=== PATIENT | female | born 1940 | race Caucasian/White ===

== ENCOUNTER → 2019-08-18 09:08 | Outpatient (CLI) | payer MEDICARE, MEDICAID | END | disposition home or self-care (01) | LOC: D.CT 08-11 08:00 | PROVIDERS: ATTEND Family Medicine | DX: N20.9 Urinary calculus, unspecified (principal) ==

== ENCOUNTER 2019-11-28 06:13 | Inpatient (IN) | payer MEDICARE, MEDICAID ==
[~2019-11-28] VITALS: Ht 167.6 cm; Wt 87.7 kg
--- NOTE | ~2019-11-28 | HEMODYNAMI ---
PATIENT:PALLAVI WALSH MEDICAL RECORD: [id number] : 44 LOCATION:D.FORMERLY [facility] ADMISSION DATE: 11/28/19 Generatedon:11/28/20199:27 Patient name: PALLAVI WALSH Patient #: [id number] SSN: : 1940 Date of study: 11/28/2019 Page: Of Hemodynamic Procedure Report Patient Data Patient Demographics Procedure consent was obtained First Name: PALLAVI Gender: Female Last Name: NICO : 1940 Middle Initial: D Age: 79 year(s) Patient #: [id number] Race: Unknown Additional ID: [id number] Contact details Address: [address] [place] [address] [facility] State: [place] City: [place] Zip code: [address] Past Medical History Allergies Allergen Reaction Date Comments Reported Codeine 11/28/2019 Admission Admission Data Admission Date: 11/28/2019 Admission Time: 6:13 Procedure Procedure Types Cath Procedure Peripheral Cath Diagnostic Procedure Nephro Perc Neph Uret Cath Procedure Description Procedure Date Procedure Date: 11/28/2019 Procedure Start Time: 8:46 Procedure End Time: 9:26 Procedure Staff Name Function Vandana Ball MD Ordering physician Ming Casas MD Performing Physician ALEKSANDRA TENORIO RT Monitor Daniel Mccarthy RT Scrub Cydney Garcia RN Nurse Procedure Data Cath Procedure Fluoroscopy Diagnostic fluoroscopy Total fluoroscopy Time: time: 12.4 min 12.4 min Contrast Material Contrast Material Type Amount (ml) Isovue 300 25 Diagnostic catheters Device Type Used For End Catheter Placement Merit Impress KA2 5Fr 65CM catheter ([id number]) Procedure Medications Medication Administration Route Dosage Heparin Flush Bag added to field 2 bags (1000units/500ml NS) Lidocaine 1% added to field 20 Versed I.V. 0.5 mg Fentanyl I.V. 25 mcg Hemodynamics Rest Heart Rate: 72 (bpm) Snapshots Pre Cath Intra NCS Post Cath Vital Signs Time Heart Resp SPO2 etCO2 NIBP (mmHg) Rhythm Pain Sedation Rate (ipm) (%) (mmHg) Status Level (bpm) 8:30:15 72 19 94 31.4 127/70(108) NSR 0 (11) 10(A) , No pain 8:34:29 69 25 97 28.4 126/66(106) NSR 0 (11) 10(A) , No pain 8:38:45 70 16 98 27.7 108/61(92) NSR 0 (11) 10(A) , No pain 8:42:55 71 21 95 26.2 124/59(96) NSR 0 (11) 10(A) , No pain 8:47:07 68 20 96 29.2 116/64(107) NSR 0 (11) 10(A) , No pain 8:51:19 67 17 98 29.2 107/60(87) NSR 0 (11) 8(A) , No pain 8:55:27 65 21 96 30.7 107/61(95) NSR 0 (11) 8(A) , No pain 9:00:25 67 18 97 30 Measuring NSR 0 (11) 8(A) , No pain 9:01:02 68 16 96 32.2 100/56(87) NSR 0 (11) 8(A) , No pain 9:06:01 66 21 95 26.2 113/61(84) NSR 0 (11) 8(A) , No pain 9:10:13 67 19 96 27 120/55(107) NSR 0 (11) 8(A) , No pain 9:14:27 69 20 96 23.2 116/60(84) NSR 0 (11) 8(A) , No pain 9:18:35 68 18 97 30 127/70(115) NSR 0 (11) 8(A) , No pain 9:22:51 75 16 97 27 127/61(109) NSR 0 (11) 8(A) , No pain 9:27:05 66 16 97 28.5 138/67(98) NSR 0 (11) 8(A) , No pain Medications Time Medication Route Dose Verified Delivered Reason Notes Effec tiveness by by 8:40:21 Heparin Flush added 2 Ming Lai used for Bag to bags Casas Casas procedure (1000units/500ml field MD MATA NS) 8:40:33 Lidocaine 1% added 20ml Ming Lai for local to vial Yessenia Casas anesthetic field MD MATA 8:46:58 Versed I.V. 0.5 Ming Lamas for mg Yessenia Garcia RN sedation 8:47:09 Fentanyl I.V. 25 Ming Lamas for mcg Yessenia Garcia RN sedation Procedure Log Time Note 7:58:21 Use device set IR Diagnostic 7:58:22 Bag Decanter (2002S) opened to sterile field. 7:58:22 Sterile Angiographic Pack opened to sterile field. 7:58:23 Tegaderm 4 x 4 (1626W) opened to sterile field. 8:17:28 [facility] sent for patient. Start room use. 8:17:30 Time tracking: Regular hours (M-F 7:00 - 5:00) 8:17:41 Plan of Care:Hemodynamics will remain stable., Cardiac rhythm will remain stable., Comfort level will be maintained., Respiratory function will remain adequate., Patient/ family verbilizes understanding of procedure., Procedure tolerated without complication., Recovers from procedure without complications.. 8:17:48 Patient received from Outpatients to IR Alert and oriented. Tansferred to table in Prone position. 8:17:51 Signed procedure consent form obtained from patient. 8:17:52 Warm blankets applied, and abdoulaye hugger turned on for patient comfort. 8:17:53 Correct patient and procedure confirmed by team. 8:17:54 ECG and BP/O2 sat monitors applied to patient. 8:17:55 8:18:12 H&P Date Dictated: 11/28/2019 H&P Addendum completed by physician on day of procedure. (MUST COMPLETE FOR ALL OUTPATIENTS). 8:18:16 Patient NPO since Midnight. 8:18:22 Patient allergic to Codeine 8:18:27 Is the patient allergic to Iodine/contrast media? No. 8:18:29 Is patient on blood thinner?No 8:18:31 Patient diabetic? No. 8:18:33 8:18:35 ----Pre-sedation anethsthesia assessment.---- 8:18:47 Previous problem with sedation/anesthesia? No ? 8:18:48 Snore? No 8:18:50 Sleep apnea? No 8:18:51 Deviated septum? No 8:18:52 Opens mouth fully? Yes 8:18:53 Sticks out tongue? Yes 8:18:57 Airway obstruction? No ? 8:19:00 Dentures? Yes out. 8:19:02 8:19:42 IV patent on arrival in left wrist with Lactated Ringers at O. 8:19:53 Left Renal was prepped with chlora-prep and draped in sterile fashion. 8:19:54 Alarms reviewed by Ramirez Edmonds 8:19:55 Sharps counted by scrub and verified by RMartha 8:19:56 8:29:00 KIT, INTRODUCER ACCUSTICK II W/C ([id number]) opened to sterile field. 8:29:06 Vital chart was started 8:29:07 Baseline sample Acquired. 8:29:09 Full Disclosure recording started 8:29:11 8:40:21 Heparin Flush Bag (1000units/500ml NS) 2 bags added to field was administered by Ming Casas MD; used for procedure; Verbal order read back and verified. 8:40:33 Lidocaine 1% 20ml vial added to field was administered by Ming Casas MD; for local anesthetic; Verbal order read back and verified. 8:41:34 Physician arrived 8:41:41 --------ALL STOP TIME OUT------ 8:41:42 Final Timeout: patient, procedure, and site verified with staff and physician. All members of the team are in agreement. 8:41:50 Left Renal site verified by team. 8:42:04 Fire Safety Assessment: A--An alcohol-based skin anteseptic being used preoperatively., C--Open oxygen or nitrous oxide is being used. 8:42:14 3a) 45-59 Moderately reduced kidney function. 8:44:22 Maximum allowable contrast dose (3.7 X eGFR X 0.75)?158 ml. 8:45:22 Procedure started. 8:46:07 Local anesthetic to Left Renal area with Lidocaine 1% by Ming Casas MD.INITIAL ACCESS ONLY 8:46:58 Versed 0.5 mg I.V. was administered by Cydney Garcia RN; for sedation; Verbal order read back and verified. 8:47:09 Fentanyl 25 mcg I.V. was administered by Cydney Garcia RN; for sedation; Verbal order read back and verified. 9:06:52 NITINOL .018 80cm wire ([id number]) opened to sterile field. 9:10:34 A Yorxs KA2 5Fr 65CM catheter ([id number]) was advanced over the wire and used for renal access . 9:10:36 ROADRUNNER .035 145 glide wire ([id number]) opened to sterile field. 9:18:53 GLIDE WIRE .035 180CM STRAIGHT (GU7063) opened to sterile field. 9:20:36 Procedure ended.(Physican Out) 9:22:15 Fluoroscopy time 12.40 minutes. 9:22:19 Dose Area Product 452 mGy/cm. 9:22:23 Contrast amount:Isovue 300 25ml. 9:22:25 Maximum allowable dose exceeded? No. 9:22:28 Sharps counted by scrub and verified by R.N. 9:22:30 Insertion/operative site no bleeding no hematoma. 9:22:41 Post-op/insertion site Left Renal dressed using a 4 x 4 and Tegaderm. 9:23:16 Catheter was left in place and a sterile dressing applied 9:23:38 Post procedure instruction explained to patient.Patient verbalizes understanding. 9:23:39 Procedure and supply charges have been captured, reviewed, submitted and are correct. 9:26:27 Vital chart was stopped 9:26:33 See physician's report for complete and final results. 9:26:42 Procedure ended. 9:26:42 Full Disclosure recording stopped Device Usage Item Name Manufacture Quantity Catalog Hospital Part Current Minimal Lot# / Number Charge Number Stock Stock Serial# Code Bag Decanter Microtek 1 [id number] [id number] 5 () Medical Inc. Sterile Cardinal 1 [id number] 030156 656343 5 Angiographic Health Pack Tegaderm 4 x 3M 1 1626W 701428 499902 625009 5 4 (1626W) KIT, [place] 1 [id number] 437161 756009 275195 5 INTRODUCER Scientific ACCUSTICK II W/C ([id number]) NITINOL .018 Medtronic 1 [id number] 231477 644453 5 [id number] 80cm wire ([id number]) Merit Merit 1 [id number] 994752 591831 5 [place] [address] Medical 5Fr 65CM catheter ([id number]) [facility] 1 [id number] 335376 588234 963790 5 .035 145 glide wire (H07338) GLIDE WIRE Terumo 1 EQ8610 108918 850384 5 .038 180cm ANGLED (QN3227) GLIDE WIRE Terumo 1 [id number] 736120 957763 5 .035 180CM STRAIGHT (HL6332) Signature Audit Merrill Stage Time Signature Unsigned Intra-Procedure 11/28/2019 ALEKSANDRA TENORIO RT 9:27:43 AM (R) [facility] [address] [place] [address]
[~2019-11-28 06:13] MED LIST: ACIDOPHILUS-PE1 EACH PO; AMOXICILLIN500 M1 PO; ARICEPT23 MG PO; BAYER CHEWABLE81 MG PO; FAMOTIDINE10 MG PO; FLUTICASONE PRO16 GM NASAL; LISINOPRIL10 MG PO; MELATONIN10 M1 PO; ULTRAM50 MG PO
[2019-11-28 06:51] LABS: ANION GAP 10.2 mmol/L (8-16); CARBON DIOXIDE 25.6 mmol/L (21.0-32.0); POTASSIUM - SERUM 3.8 mmol/L (3.5-5.1)
[2019-11-28 07:34] LABS: INR 0.97 (0.85-1.17); PROTIME 12.8 SECONDS (11.6-15.0)
[2019-11-28 07:56] VITALS: BP 144/89; BMI 31.2
[2019-11-28 08:13] LABS: BASOPHILS 0.3 % (0-2); HEMOGLOBIN 14.9 g/dL (12-16); MCH 31.1 pg (26.0-34.0); MCHC 31.7 g/dL (31.0-37.0); MCV 98.1 fL (80.0-100.0); MEAN PLATELET VOLUME 9.2 fL (7.4-10.4); MONOCYTES 6.4 % (2-11); NEUTROPHILS 50.3 % (40-80); PLATELET COUNT 366 10x3/uL (130-400); RBC 4.79 10x6/uL (4.00-5.40); WBC 6.9 10x3/uL (4.8-10.8)
--- NOTE | 2019-11-28 13:25 | NUR ---
PATIENT IS WNL OF MOVEMENT AND SENSATION; HX OF CVA.
[2019-11-28 14:31] VITALS: BP 113/70
[2019-11-28 18:56] VITALS: BP 111/74
[2019-11-28 19:46] VITALS: BP 111/74; Ht 167.6 cm; Wt 87.7 kg
[2019-11-28 20:00] VITALS: BP 113/67
--- NOTE | 2019-11-28 20:00 | NUR ---
RESTING IN BED ALERT BUT CONFUSED, WEAVER CATH DRAING DARK COLORED URINE, LEFT NEPHROSTOMY TUBE DRAING BLOODY DRAINAGE, DENIES PAIN, SEE SHIFT ASSESSMENT, CALL LIGHT IN REACH
[2019-11-29 04:00] VITALS: BP 117/68
[2019-11-29 08:00] VITALS: BP 129/72
--- NOTE | 2019-11-29 08:02 | NUR ---
PT RESTING IN BED WITH HOB ELEVATED. RESP EVEN AND UNLABORED. O2 @ 2.5L NC IN PLACE. PT DENIES PAIN AT THIS TIME. NO IV ACCESS. NEPHROSTOMY TO LEFT BACK DRAINING DARK COLORED DRAINAGE, F/C PATENT TO GRAVITY DRAINING DARK AMBERED URINE. DENIES FURTHER NEEDS AT THIS TIME. CL WITHIN REACH. ENCOURAGED TO CALL WITH NEEDS. CONTINUE POC
--- NOTE | 2019-11-29 08:41 | OP ---
PATIENT NAME: PALLAVI WALSH MEDICAL RECORD: [id number] :44 LOCATION:D.[facility] ADMISSION DATE: SURGEON: GABI MARTINS MD DATE OF OPERATION: 11/28/2019 SURGEON: Gabi Martins MD ANESTHESIA: General anesthesia by Rebekah Govea CRNA. DIAGNOSES: Left staghorn renal calculus, 20 x 17 mm in size with a left proximal ureteral stone, 4 mm. PROCEDURE: Left percutaneous nephrolithotomy, cystoscopy, flexible ureteroscopy in an antegrade fashion. FINDINGS: Faintly radiodense left renal stones. Large quantities of rounded stones in the renal pelvis and in the lower pole calices. The stone was seen in the UV junction and removed. ESTIMATED BLOOD LOSS: Minimal. CLINICAL HISTORY: This is a 79-year-old female patient of a jail. She was referred to me by Dr. Ross with a complaint of bilateral back pain. A CT scan shows a large left staghorn renal calculus, which is in the renal pelvis and the lower pole. There are also stones in the proximal ureter. The right side is clear of kidney stones and ureteral stones. She comes now to have this large stone removed by a percutaneous nephrolithotomy. Earlier today, Dr. Casas placed a mid pole nephroureteral access. We will be using this access to gain entry into the kidney. She was given ampicillin and sulbactam 3 grams IV studio operation engineer to the OR. DESCRIPTION OF PROCEDURE: The patient was given induction of general anesthesia in the supine position on the stretcher. She was then placed in a frogleg position and prepped and draped. Using cystoscopy, I was able to pull the distal end of the nephroureteral stent out through the urethral meatus. This will allow us to put a clamp on the access wire and prevent backwards migration and loss of the access tract. A Ramon catheter was then inserted and put to bag drainage. The patient was then turned onto the prone position on the Nicholas frame. We made sure that all pressure points were well padded. She was then prepped and draped. The nephroureteral access catheter was intubated with an Amplatz Super Stiff wire. Once the wire reached the urethral meatus. The circulating nurse then put a hemostat on to the wire to prevent backwards migration of the wire. The nephroureteral catheter was then removed entirely and discarded. A 1-cm incision was made on either side of the Super Stiff wire. I could feel with my scalpel tip that I was entering onto the bottom of the 12th rib. We moved a little more inferiorly to enter into the interspace. A dual-lumen catheter was then placed and a second wire was placed down the ureter and into the bladder. The second wire will act as a safety wire. The dual-lumen catheter was removed, leaving the [address] The second wire, which is the Sensor wire was clamped to the drapes to act as a safety wire. We worked over the Super Stiff wire. A NephroMax 30-Fijian balloon dilator was then introduced and placed into the renal pelvis with the tip near the UP junction. The balloon was inflated to 16 atmospheres of pressure for a few seconds and then the working sheath was slid down over the inflated balloon and into the renal pelvis. The inflation balloon was then deflated and the device OPERATIVE REPORT [id number] PALLAVI WALSH was removed entirely. This left the working sheath as our straight passage into the kidney. The nephroscope was then introduced. We immediately encountered large numbers of stones of various sizes including some fairly big ones and many smaller ones. I attempted to grasp at the biggest one with a Cook Oepn-C-Udstjh basket. However, the stones are very smooth and difficult to grasp this way. The [employer] LithoClast ultrasonic modality was used to break up the stones. The larger pieces were removed using the Zgbj-T-Trfdvk basket or a 0-tip 4-wire basket. Finally, we had the renal pelvis cleaned out. I then swung the pole into the upper pole and we found a collection of stones in an upper pole berry. This was also treated in the same way. Finally, the scope went down into the lower pole and we saw another large collection of stones in the lower pole. These were cleaned out also. At the end, we saw a stone lodged in the UP junction. This was removed using a 0-tip 4-wire basket. Under fluoroscopy, we could see no further stones. Visually on nephroscopy, we could not see any further stones. I introduced the flexible cystoscope. This acted as a nephroscope in the kidney. I could see down the proximal ureter, but I could not get fully into the proximal ureter due to the large size of the scope. I decided to abandon further attempts at ureteroscopy in an antegrade fashion. Over the Super Stiff wire, we inserted a 24-Fijian Malecot nephrostomy tube. Once the tube was in correct position, then the working sheath and both wires were removed entirely. I performed a nephrostogram by injecting diluted contrast on the nephrostomy tube. This showed no signs of extravasation. The contrast did go down the ureter and was visible up to about the mid ureteral level. Beyond this, I could not really see if there was drainage or not. The contrast also leaked out around the nephrostomy tube on to the skin and therefore I would come out in preference to going down the ureter. The nephrostomy tube was sutured to the skin using 2-0 nylon. Dressings were then applied. The patient was then awakened and brought to the recovery room. I will obtain some sort of imaging at a later date to determine whether or not a ureteral stone was still present. TRANSINT:[id number] Voice Confirmation ID: [id number] DOCUMENT ID: [id number] GABI MARTINS MD at 0841 CC: [id number] DICTATION DATE: 11/28/19 1316 IT SYSTEMS MANAGER: 11/28/19 1932 [facility] [address] [place] [id number]
--- NOTE | 2019-11-29 10:02 | NUR ---
PT ADMINISTERED MORNING MEDICATIONS PER MD ORDERS. REPORTS PAIN 5/10 AT THIS TIME AND REQUEST PAIN MEDICATIONS. NORCO ADMINISTERED PER MD ORDERS. PT DENIES FURTHER NEEDS AT THIS TIME. CL WITHIN REACH. ENCOURAGED TO CALL WITH NEEDS.
--- NOTE | 2019-11-29 11:53 | NUR ---
PT RESTING WITH EYES CLOSED. RESP EVEN AND UNLABORED. NO ACUTE DISTRESS NOTED AT THIS TIME. CL WITHIN REACH.
[2019-11-29 12:00] VITALS: BP 148/87
--- NOTE | 2019-11-29 12:46 | NUR ---
PT SITTING UP IN BED CONSUMING LUNCH. NO ACUTE DISTRESS NOTED. DENIES FURTHER NEEDS AT THIS TIME. CL WITHIN REACH. ENCOURAGED TO CALL WITH NEEDS.
--- NOTE | 2019-11-29 14:56 | NUR ---
PT PROVIDED PERICARE AT THIS TIME, GOWN CHANGED. PT DENIES FURTHER NEEDS AT THIS TIME. CL WITHIN REACH. ENCOURAGED TO CALL WITH NEEDS.
--- NOTE | 2019-11-29 15:14 | NUR ---
WOUND CARE CONSULT FOR DECREASED MOBILITY: TURN/REPOSITION PT Q 2 HOURS WHILE IN BED AND HOURLY REPOSITIONING IF UP IN CHAIR. FLOAT HEELS AND ASSESS SKIN Q SHIFT.
[2019-11-29 16:00] VITALS: BP 140/101
[2019-11-29 20:00] VITALS: BP 139/89
[2019-11-30 04:00] VITALS: BP 168/94
--- NOTE | 2019-11-30 07:12 | NUR ---
PT RESTING IN BED C/O PAIN AT THIS TIME. RATES PAIN 5/10. PAIN MEDICATION ADMINISTERED PER MD ORDERS. RESP EVEN AND UNLABORED AT THIS TIME. NEPHROSTOMY TUBE TO LEFT BACK INTACT WITH SCANT BLOODY DRAINAGE. F/C PATENT TO GRAVITY. DENIES FURTHER NEEDS AT THIS TIME. CL WITHIN REACH. ENCOURAGED TO CALL WITH NEEDS. CONTINUE POC
[2019-11-30 08:00] VITALS: BP 163/99
[2019-11-30 12:00] VITALS: BP 158/91
--- NOTE | 2019-11-30 12:12 | NUR ---
DR. MARTINS HERE AND DISCONTINUED LEFT SIDE NEPHROSTOMY TUBE. PT PRINCE WELL
--- NOTE | 2019-11-30 13:08 | MORECARE ---
CASE MANAGEMENT DISCHARGE SUMMARY PATIENT: PALLAVI WALSH UNIT: [id number] ADM DATE: 11/29/19 AGE: 79 : 42 SEX: F ROOM/BED: D.[facility] AUTHOR: ANA SALINAS PHYSICIAN: REFERRING PHYSICIAN: GABI MARTINS MD DATE OF SERVICE: 11/30/19 Discharge Plan Patient Name: PALLAVI WALSH [facility] [facility] 1940 Planned Disposition: Anticipated Discharge Date: Discharge Date: Expected LOS: Initial Reviewer: [email or web address] Initial Review Date: 11/30/2019 Generated: 11/30/19 2:07 pm DCPIA - Discharge Planning Initial Assessment Updated by CANDI: Mona Arroyo on 11/30/19 1:04 pm * Is the patient Alert and Oriented? No * Facility Name [facility] External Providers External Provider: [facility] Next Contact Date: Service Request Date: Service Type: Resolution: Reviewer: Comments: Coverage Notice Reviewer: [email or web address] Arroyo Notice Issued Date-Time: 11/30/2019 13:06 Notice Type: IM Discharge Notice Notice Delivered To: Patient Relationship to Patient: Fruit Bar Maker Name: Delivery Method: HAND - Hand Delivered Eri Days: Prior Verbal Notification: Recipient Understood Notice: Yes Recipient Signature: Med Rec Note Co-signed by Attending: Coverage Notice Comment: Reviewer: [email or web address] Arroyo Notice Issued Date-Time: 11/30/2019 13:06 Notice Type: Patient Choice Letter Notice Delivered To: Patient Relationship to Patient: Fruit Bar Maker Name: Delivery Method: HAND - Hand Delivered Eri Days: Prior Verbal Notification: Recipient Understood Notice: Yes Recipient Signature: Yes Med Rec Note Co-signed by Attending: Coverage Notice Comment: TO [facility]ME [facility] Patient Name: PALLAVI WALSH Page [phone] at 1308 All edits/amendments must be made on the electronic document DICTATION DATE: 11/30/19 1307 FOOD TECHNICIAN: NILSON 11/30/19 1307 RPT#: [id number] DC DATE: STATUS: ADM IN [facility] [address] [place] [address] END OF REPORT
--- NOTE | 2019-11-30 14:00 | NUR ---
DRESSING CHANGED TO LEFT BACK TO OLD NEPHROSTOMY SITE. MODERATE AMOUNT OF SEROSANGUENOUS AND YELLOW DRAINAGE NOTED. DRESSING TAPED BACK INTO PLACE AT SITE
[2019-11-30 16:00] VITALS: BP 178/102
[2019-11-30 16:45] VITALS: BP 132/90
[2019-11-30 20:00] VITALS: BP 129/76
[2019-12-01] VITALS: BP 116/67
[2019-12-01 04:00] VITALS: BP 127/83
[2019-12-01 08:00] VITALS: BP 150/97
--- NOTE | 2019-12-01 10:10 | NUR ---
COMPLETE BED BATH AND BED LINEN CHANGED. DRESSING CHANGED TO LEFT BACK. MINIMAL SEROSANGENOUS DRAINAGE NOTED TO OLD DRESSING. PT PRINCE WELL AND VOICED APPRECIATION OF STAFF. CL WITHIN REACH. WATER OFFERED AND CONSUMED.
[2019-12-01] MEDS ORDERED: HYDROCODON-ACE1 EAC7 PO (11:12)
[2019-12-01 12:00] VITALS: BP 138/98
--- NOTE | 2019-12-01 17:24 | MORECARE ---
CASE MANAGEMENT DISCHARGE SUMMARY PATIENT: PALLAVI WALSH UNIT: [id number] ADM DATE: 11/29/19 AGE: 79 : 42 SEX: F ROOM/BED: D.2240 AUTHOR: ANA SALINAS PHYSICIAN: REFERRING PHYSICIAN: GABI MARTINS MD DATE OF SERVICE: 12/01/19 Discharge Plan Patient Name: PALLAVI WALSH [facility] [facility] 1940 Planned Disposition: Anticipated Discharge Date: Discharge Date: 12/01/2019 Expected LOS: Initial Reviewer: [email or web address] Initial Review Date: 11/30/2019 Generated: 12/01/19 6:23 pm DCPIA - Discharge Planning Initial Assessment Updated by [email or web address]: Mona Arroyo on 11/30/19 1:04 pm * Is the patient Alert and Oriented? No * Facility Name [facility] Coverage Notice Reviewer: [email or web address] Arroyo Notice Issued Date-Time: 11/30/2019 13:06 Notice Type: IM Discharge Notice Notice Delivered To: Patient Relationship to Patient: Facilities Flight Check Pilot Name: Delivery Method: HAND - Hand Delivered Eri Days: Prior Verbal Notification: Recipient Understood Notice: Yes Recipient Signature: Med Rec Note Co-signed by Attending: Coverage Notice Comment: Reviewer: [email or web address] Arroyo Notice Issued Date-Time: 11/30/2019 13:06 Notice Type: Patient Choice Letter Notice Delivered To: Patient Relationship to Patient: Facilities Flight Check Pilot Name: Delivery Method: HAND - Hand Delivered Eri Days: Prior Verbal Notification: Recipient Understood Notice: Yes Recipient Signature: Yes Med Rec Note Co-signed by Attending: Coverage Notice Comment: TO [facility] Last DP export: 11/30/19 12:08 pm Patient Name: PALLAVI WALSH Page [phone] at 1724 All edits/amendments must be made on the electronic document DICTATION DATE: 12/01/191722 CIRCUS HAND: NILSON 12/01/191722 RPT#: [id number] DC DATE:12/01/19 STATUS: DIS IN [place] [id number] [place] [address] END OF REPORT
== END 2019-12-01 16:02 | DRG 661 ==
LOC: D.OPS 06:13 → D.MS 06:13 → D.RAD 08:00 → D.OPS 08:00 → D.PAN 10:00 → D.OPS 10:00 → D.MS 14:30 → D.OPS 11-29 13:01 → D.MS 12-01 16:02
PROVIDERS: Specialist; ADMIT Urology; ATTEND Urology
PROC: 0TC13ZZ Extirpation of Matter from Left Kidney, Percutaneous Approach (ICD-10-PCS; principal; 2019-11-28 08:00)
DX: N13.6 Pyonephrosis (principal); N20.0 Calculus of kidney; Z87.442 Personal history of urinary calculi